=== PATIENT | male | born 1945 | race African-American/Black ===

== ENCOUNTER → 2016-08-19 | Outpatient (CLI) | payer OTHER ==
[~2016-08-19] VITALS: Ht 200.7 cm; Wt 69.4 kg
[~2016-08-19] MED LIST: ACETAMINOPHEN325 M1 PO; ASPIR 8181 MG PO; ATIVAN1 MG PO; BENZTROPINE MES1 MG PO; BOOST237 M1 PO; CEFADROXIL 500500 M1 PO; CIPRO250 M1 PO; CIPRO500 MG PO; CLINDAMYCIN HC150 MG PO; COLACE100 MG PO; DUONEB 2.5-0.5 M3 ML; DUONEB 2.5-0.5 M3 ML INH; ENOXAPARIN40 MG/0.1; FLOMAX0.4 MG PO; GEMFIBROZIL1 GM PO; HALDOL DEC100 MG/1 M IM; HALOPERIDOL10 MG PO; HYDROCODONE-AP1 EAC6 PO; KEFLEX500 MG PO; LAMICTAL100 MG PO; LEVAQUIN 500 M500 M2 PO; LISINOPRIL20 MG PO; LOPID600 MG PO; MIRALAX17 GM PO; MIRALAX255 GM PO; MULTIPLE VITAM1 EAC2 PO; NEURONTIN600 MG PO; OLANZAPINE10 M1 PO; OLANZAPINE10 MG PO; PREDNISONE50 MG PO; PROSCAR 5MG TABL5 MG PO; PROSTAT PO; PROTONIX40 M1 PO; UNICOMPLEX M TA1 TA1 PO; ZYPREXA20 MG PO; [UNRECOGNIZED DRUG - OTHER] TP
[2016-08-19 07:48] VITALS: BP 131/73
[2016-08-19 08:01] LABS: HEMATOCRIT 33.6 % (42.0-52.0); HEMOGLOBIN 11.9 gm/dL (14.0-18.0); MCH 31.7 pg (26.0-34.0); MCHC 35.5 g/dL (28.0-37.0); MCV 89.5 fL (80.0-100.0); RBC 3.76 mil/uL (4.50-6.00); RDW 15.5 % (10.5-14.5)
[2016-08-19 08:10] LABS: CALCIUM 8.5 mg/dL (8.5-10.1); POTASSIUM 3.7 mmol/L (3.5-5.1)
[2016-08-19 08:17] LABS: INR 1.1; PROTIME 11.3 Seconds (9.3-11.4)
== END | disposition home or self-care (01) ==
LOC: SPEC 07:17
PROVIDERS: Radiology Vascular & Interventional Radiology
DX: N32.89 Other specified disorders of bladder (principal)

== ENCOUNTER 2016-08-20 22:03 | Emergency (ER) | payer OTHER ==
[~2016-08-20] VITALS: Ht 200.7 cm; Wt 77.1 kg
--- NOTE | ~2016-08-20 | EKG ---
[place] [address] [facility] [place] [employer] [address] ELECTROCARDIOGRAM REPORT Name: JACOB SMITH V Room #: [facility]#: [id number] Admission: 08/20/16 Attend Phys: Discharge: 08/21/16 Date of : 49 Report #: [id number] THIS REPORT FOR: //name// [facility] ED Test Date: 2016-08-20 Test Time: 22:33:53 Pat Name: JACOB SMITH Department: Room: Gender: M Sales Product Specialist: TRANG PAZ : 1945 Requested By: Rowena Dumas Order Number: [id number] MD: Beto Koenig Measurements Intervals [facility] Rate: 87 P: 67 PA: 138 QRS: -9 QRSD: 88 T: 41 QT: 412 QTc: 496 Interpretive Statements Sinus rhythm Poor R-wave progression Borderline prolonged QT interval Compared to ECG 02/25/2016 16:20:42 Left ventricular hypertrophy now present Sinus bradycardia no longer present Electronically Signed On 08-22-2016 8:26:34 CDT by Beto Koenig [email or web address] <ELECTRONICALLY SIGNED> By: Beto Koenig MD, [facility] 08/22/16 0826 32 32 Beto Koenig MD, [facility] /EPI
[2016-08-20] MEDS ORDERED: HYDROCODONE-AP1 EAC6 PO (23:07)
[2016-08-20 23:17] LABS: HEMATOCRIT 33.5 % (42.0-52.0); HEMOGLOBIN 11.6 gm/dL (14.0-18.0); MANUAL DIFF YES; MCH 30.8 pg (26.0-34.0); MCHC 34.7 g/dL (28.0-37.0); MCV 88.7 fL (80.0-100.0); PLATELET COUNT 431 thou/uL (150-400); RBC 3.78 mil/uL (4.50-6.00); RDW 15.2 % (10.5-14.5); WBC 25.4 thou/uL (4.0-11.0)
[2016-08-20 23:21] LABS: ANION GAP 8 mmol/L (7-16); BUN 18 mg/dL (7-18); CALCIUM 8.5 mg/dL (8.5-10.1); CHLORIDE 101 mmol/L (98-107); CO2 30 mmol/L (21-32); GLUCOSE 112 mg/dL (74-106); POTASSIUM 3.8 mmol/L (3.5-5.1); SODIUM 139 mmol/L (136-145)
[2016-08-20 23:33] LABS: ALBUMIN 2.9 g/dL (3.4-5.0); ALKALINE PHOSPHATASE 79 U/L (46-116); NT-PRO BRAIN NAT PEPTIDE 798 pg/mL (<300); SGOT 17 U/L (15-37); SGPT 18 U/L (30-65); TOTAL BILIRUBIN 0.7 mg/dL (<0.1-1.0); TOTAL PROTEIN 7.1 g/dL (6.4-8.2); TROPONIN-I < 0.04 ng/mL (<0.04-0.07)
[2016-08-20 23:57] LABS: ABSOLUTE NEUTROPHILS 19.8 thou/uL (1.4-8.2); ANISOCYTOSIS SLIGHT; METAMYELOCYTES 1 %; TOTAL CELL COUNT 100
[2016-08-21 00:25] LABS: URINE BILIRUBIN NEGATIVE (Negative); URINE BLOOD 3+ (Negative); URINE COLOR YELLOW; URINE GLUCOSE-RANDOM* NEGATIVE (Negative); URINE KETONES NEGATIVE (Negative); URINE LEUKOCYTES-REFLEX 3+ (Negative); URINE PROTEIN (DIPSTICK) NEGATIVE (Negative); URINE SPECIFIC GRAVITY <= 1.005 (1.003-1.035); URINE UROBILINOGEN 0.2 E.U./dl (0.2-1.0)
[2016-08-21 00:36] LABS: CASTS None Seen /LPF (None Seen); CRYSTALS None Seen /LPF (None Seen); SQUAMOUS None Seen /LPF (0-3); URINE RBC 0-2 Rare /HPF (0-2)
== END 2016-08-21 03:35 | disposition short-term general hospital (02) ==
LOC: ER 22:03
PROVIDERS: Emergency Medicine
DX: N39.0 Urinary tract infection, site not specified (principal); I10 Essential (primary) hypertension; F17.210 Nicotine dependence, cigarettes, uncomplicated; K21.9 Gastro-esophageal reflux disease without esophagitis; F25.9 Schizoaffective disorder, unspecified; F31.9 Bipolar disorder, unspecified; J44.9 Chronic obstructive pulmonary disease, unspecified; N40.0 Benign prostatic hyperplasia without lower urinary tract symptoms; E78.5 Hyperlipidemia, unspecified; Z88.0 Allergy status to penicillin